=== PATIENT | female | born 1995 | race Caucasian/White ===

== ENCOUNTER 2019-11-06 09:32 | Emergency (ER) | payer BC, SELFPAY ==
[2019-11-06 10:28] VITALS: BP 119/75; PULSE 69; RESP 18; TEMP 36.9; O2SAT 100; BMI 36.6
--- NOTE | 2019-11-06 10:28 | ED.URI ---
HPI - URI/Sore Throat General Chief Complaint: Upper Respiratory Symptoms Stated Complaint: COVID SWAB Time Seen by Provider: 11/06/19 10:26 Source: patient Mode of arrival: ambulatory Limitations: no limitations History of Present Illness MD elicited complaint: cough, sore throat and rhinorrhea Onset (ago): day(s) (few) Consistency: constant Severity: mild Exacerbating factors: nothing Relieving factors: nothing Associated symptoms: diarrhea Related Data Allergies Allergy/AdvReac Type Severity Reaction Status Date / Time amoxicillin [From Augmentin] AdvReac vomiting Verified 11/06/19 10:28 clavulanic acid AdvReac vomiting Verified 11/06/19 10:28 [From Augmentin] morphine AdvReac agitation Verified 11/06/19 10:28 Review of Systems Review of Systems: Constitutional : no Fever, positive Chills, positive fatigue, positive Malaise ENT/Mouth : positive sore throat, positive runny nose Eyes: No Discharge Cardiovascular : No Chest Pain, No SOB Respiratory : No Cough, No Sputum, No Wheezing, No Smoke Exposure, No Dyspnea Gastrointestinal : No Nausea, No Vomiting, posDiarrhea Genitourinary : No Dysuria, No Urinary Frequency, Musculoskeletal : positive Myalgia Skin : No rash Neuro : No Headache PMFSH Past Medical History Medical History No known health problems Social History Social History Advance Directives: No Advance Directives Information Provided: No Physical Exam Vital Signs and I&O and Narrative: Vital Signs and I&O: Vital Signs Temp 98.5 F 11/06/19 10:28 Pulse 69 11/06/19 10:28 Resp 18 11/06/19 10:28 BP 119/75 11/06/19 10:28 Pulse Ox 100 11/06/19 10:28 Intake & Output 11/05/19 11/06/19 11/06/19 18:59 06:59 18:59 Weight 90.718 kg Body Mass Index 36.6 Const: General: cooperative, healthy appearing and no acute distress Orientation/consciousness: patient oriented x3 HENMT: Head: Yes normal to inspection Mouth: moist mucous membranes abnormal Throat: Yes uvula midline and Yes abnormal tonsil (erythema and mild white patches) Eyes: General: appearance normal, both eyes and all related structures Pupils: Equal, round and reactive pupils present Neck: Neck: Yes normal visual inspection Resp: Effort & Inspection: normal respiratory effort Auscultation: clear to auscultation bilaterally Cardio: Rate: regular rate Rhythm: regular rhythm Peripheral pulses: Peripheral pulses 2+ throughout GI: Palpation (GI): Soft to palpation and nontender Skin: General skin exam: no rashes or lesions noted Neuro: General: patient oriented x3 Cranial nerves: Yes CN's II-XII intact bilaterally and Yes Equal, round and reactive pupils present Cognition (Neuro): normal cognition Gait exam (Neuro): Normal gait present Extrem: General: Yes normal to inspection and Yes no pedal edema Psych: Appearance: grossly normal Course Course Hospital Course: not toxic, stable for DC MDM - URI/Sore Throat MDM Narrative Medical decision making narrative: patient is not toxic, no hypoxia, no sore throat overall has viral syndrome will need COVID swab and rapid strep Discharge Plan Discharge Clinical Impression: Upper respiratory infection, Viral infection Patient Disposition: Home, Self-Care Instructions: COVID-19 (Coronavirus Disease 2019) (ED) Additional Instructions: we will call you with results in 4 days, STREP was negative Stand Alone Forms: Work/School Release Interventions: ED Discharge Assessment Last Done: 11/06/19 11:18 Discharge Date/Time: 11/06/19 11:25
== END 2019-11-06 11:25 | disposition home or self-care (01) ==
PROVIDERS: Emergency Provider Emergency Medicine
DX: B34.9 Viral infection, unspecified (principal); Z20.828 Contact with and (suspected) exposure to other viral communicable diseases; J02.9 Acute pharyngitis, unspecified
CPT/HCPCS: 36415; 87071; 87635; 99283